=== PATIENT | male | born 1975 | race Native Hawaiian/Other Pacific Islander ===

== ENCOUNTER 2021-02-07 16:30 | Outpatient (CLI) | payer OTHER ==
[2021-02-07 17:57] LABS: PLATELET COUNT 288 K/uL (142-355)
[2021-02-07 18:32] LABS: POTASSIUM 4.4 mmol/L (3.6-5.2)
== END 2021-02-07 20:41 | disposition home or self-care (01) ==
LOC: LAB 16:30
PROVIDERS: ATTEND Nurse Practitioner Family
DX: R53.83 Other fatigue (principal); R53.81 Other malaise; I10 Essential (primary) hypertension
CPT/HCPCS: 80053; 80061; 84443; 85027

== ENCOUNTER 2022-07-24 09:32 | Outpatient (CLI) | payer OTHER | END 2022-07-24 19:27 | disposition home or self-care (01) | LOC: US 09:32 | PROVIDERS: ATTEND Nurse Practitioner | DX: R10.9 Unspecified abdominal pain (principal) ==